=== PATIENT | female | born 1955 | race Caucasian/White ===

== ENCOUNTER 2019-12-27 17:54 | Emergency (ER) | payer BC ==
[~2019-12-27] VITALS: Ht 170.2 cm; Wt 81.6 kg
--- NOTE | 2019-12-27 18:35 | NUR ---
MSE completed by myself.
[2019-12-27] MEDS ORDERED: AMLO5TAB92 PO (18:43)
[2019-12-27] MEDS ORDERED: METF750T46 PO (18:43)
[2019-12-27 18:44] VITALS: BP_SYST 142
[2019-12-27] MEDS ORDERED: METO50TA7 PO (18:44)
[2019-12-27] MEDS ORDERED: MORPHINE SULFATE 10 MG/ML VIAL IM ONE ×2 (18:45→20:00)
[2019-12-27] MEDS ORDERED: DIPHENHYDRAMINE INJ 50 MG/ML VIAL IM ONE (18:45)
--- NOTE | 2019-12-27 18:50 | NUR ---
PATIENT TO WAITING AREA, STABLE AND UNCHANGED; ELEVATION WITH PILLOW AND ICE BAG
--- NOTE | 2019-12-27 19:45 | NUR ---
Placed in room 6. Placed on hall monitor, blood pressure machine and pulse oximeter. To gown for exam. Side rails up.
--- NOTE | 2019-12-27 19:50 | NUR ---
Pt was BIB son c/o right wrist pain and deformity s/p fall. Pt was at home and tripped and fell on right wrist. Pt is 9/10 pain unable to rotate wrist. Noted swelling to right hand, cap refill < 3 seconds. No other injuries/complaints per patient or noted.
--- NOTE | 2019-12-27 20:10 | NUR ---
GREY Ralph at bedside examining patient.
[2019-12-27] MEDS ORDERED: DIPHENHYDRAMINE INJ 50 MG/ML VIAL IVP ONE (20:30)
[2019-12-27] MEDS ORDERED: MORPHINE SULFATE 10 MG/ML VIAL IVP ONE (20:30)
[2019-12-27] MEDS ORDERED: ETOMIDATE 20 MG/ 10 ML VIAL (AMIDATE) IVP ONE (20:45)
[2019-12-27] MEDS ORDERED: NACL 0.9% 1,000 ML IV ONE (20:45)
--- NOTE | 2019-12-27 21:23 | NUR ---
Time out done at bedside. See moderate sedation record in chart.
[2019-12-27 22:30] VITALS: BP_SYST 132
--- NOTE | 2019-12-27 22:30 | NUR ---
Patient given written and verbal discharge instructions and verbalizes understanding. ER MD discussed with patient the results and treatment provided. Patient in stable condition. ID arm band removed. IV catheter removed intact and dressing applied, no active bleeding. Rx of Ibuprofen and [place] given. Patient educated on pain management and to follow up with PMD. Pain Scale 0. Opportunity for questions provided and answered. Medication side effect fact sheet provided.
== END 2019-12-27 22:30 | disposition home or self-care (01) ==
LOC: SED 17:54
DX: S52.511A Displaced fracture of right radial styloid process, initial encounter for closed fracture (principal); I10 Essential (primary) hypertension; Z86.73 Personal history of transient ischemic attack (TIA), and cerebral infarction without residual deficits; W01.0XXA Fall on same level from slipping, tripping and stumbling without subsequent striking against object, initial encounter; Y93.89 Activity, other specified; Y92.098 Other place in other non-institutional residence as the place of occurrence of the external cause; Y99.8 Other external cause status
CPT/HCPCS: 25605; 73110; 96374; 96375; 99152; 99285; J1200; J2270; J3490; J7030

== ENCOUNTER 2020-01-01 09:58 | Day surgery (SDC) | payer BC ==
[2019-12-31 12:20] LABS: BASOPHILS # (AUTO) 0.1 K/uL (0.0-0.2); BASOPHILS % (AUTO) 1.1 % (0.0-2.0); EOSINOPHILS # (AUTO) 0.2 K/uL (0.0-0.4); EOSINOPHILS % (AUTO) 2.6 % (0.0-4.0); HEMATOCRIT 35.2 % (36-48); HEMOGLOBIN 11.5 g/dL (12.0-16.0); LYMPHOCYTES # (AUTO) 1.1 K/uL (1.0-5.5); LYMPHOCYTES % (AUTO) 16.5 % (20.5-51.5); MEAN CORPUSCULAR HEMOGLOBIN 28 pg (27-31); MEAN CORPUSCULAR HGB CONC 33 % (32-36); MEAN CORPUSCULAR VOLUME 85 fL (79.0-98.0); MONOCYTES # (AUTO) 0.3 K/uL (0.0-1.0); MONOCYTES % (AUTO) 4.8 % (1.7-9.3); PLATELET COUNT (AUTO) 289 K/uL (130-430); RED BLOOD CELL COUNT(AUTO) 4.16 MIL/uL (4.2-6.2); RED CELL DISTRIBUTION WIDTH 15.1 % (9.0-15.0); WHITE BLOOD COUNT (AUTO) 6.6 K/uL (4.8-10.8)
[2019-12-31 12:34] LABS: CALCIUM 9.3 mg/dL (8.4-11.0); CREATININE 0.73 mg/dL (0.55-1.30)
[2019-12-31 12:39] LABS: INR 1.1 (0.8-1.2); PROTHROMBIN TIME 10.8 SECS (9.5-12.5)
[~2020-01-01] VITALS: Ht 170.2 cm; Wt 72.6 kg
[~2020-01-01 09:58] MED LIST: AMLO5TAB92 PO; METF750T46 PO; METO50TA7 PO
[2020-01-01] MEDS ORDERED: GLYCOPYRROLATE 0.2 MG/ML VIAL IJ ONE (12:29)
[2020-01-01] MEDS ORDERED: SEVOFLURANE 15 MIN GAS INH ONE (12:29)
[2020-01-01] MEDS ORDERED: LR 1,000 ML IV.SOLN IV ONE (12:29)
[2020-01-01] MEDS ORDERED: NS IRRIG SOLN 1000 ML IR ONE (12:29)
[2020-01-01] MEDS ORDERED: METOCLOPRAMIDE HCL 10 MG/2 ML VIAL IVP ONE (12:29)
[2020-01-01] MEDS ORDERED: PROPOFOL 200MG/ 20ML VIAL (DIPRIVAN) IV ONE (12:29)
[2020-01-01] MEDS ORDERED: LIDOCAINE 1% 10 MG/ML, 20 ML MDV IM ONE (12:29)
[2020-01-01] MEDS ORDERED: fentaNYL CITRATE/PF 100 MCG/2 ML AMP IVP ONE (12:29)
[2020-01-01] MEDS ORDERED: MIDAZOLAM HCL 5 MG/5 ML VIAL IVP ONE (12:29)
[2020-01-01] MEDS ORDERED: ONDANSETRON HCL 4 MG/2 ML VIAL IVP ONE (12:29)
[2020-01-01] MEDS ORDERED: CEFAZOLIN 2 GM IVPB PREMIX 50 ML IV ONE (12:29)
[2020-01-01] MEDS ORDERED: LR 1,000 ML IV SCH (13:02)
[2020-01-01] MEDS ORDERED: HYDROmorphone 2 MG/ML VIAL IVP PRN (13:15)
[2020-01-01] MEDS ORDERED: ONDANSETRON HCL 4 MG/2 ML VIAL IVP PRN (13:15)
[2020-01-01] MEDS ORDERED: NALOXONE HCL 0.4 MG/ML AMP (NARCAN) IVP PRN (13:15)
[2020-01-01] MEDS ORDERED: HYDROmorphone 1 MG INJ. 1 MG/ML AMPUL IVP PRN ×2 (13:15)
[2020-01-01] MEDS ORDERED: KETOROLAC TROMETHAMINE 30 MG VIAL IVP PRN ×3 (13:15)
[2020-01-01] MEDS ORDERED: HYDROmorphone 2 MG/ML VIAL ONE (13:44)
[2020-01-01 14:36] VITALS: BP_SYST 134
[2020-01-01] MEDS ORDERED: KETOROLAC TROMETHAMINE 30 MG VIAL ONE (14:40)
== END 2020-01-01 15:30 | disposition home or self-care (01) ==
LOC: SDS 09:58 → SMU 09:59 → SDS 15:30
PROVIDERS: ATTEND Orthopaedic Surgery
DX: S52.531A Colles' fracture of right radius, initial encounter for closed fracture (principal); I10 Essential (primary) hypertension; E11.9 Type 2 diabetes mellitus without complications; F17.210 Nicotine dependence, cigarettes, uncomplicated; Z90.710 Acquired absence of both cervix and uterus; Z88.8 Allergy status to other drugs, medicaments and biological substances; X58.XXXA Exposure to other specified factors, initial encounter; Y93.89 Activity, other specified; Y92.89 Other specified places as the place of occurrence of the external cause; Y99.8 Other external cause status; Z83.3 Family history of diabetes mellitus; Z79.01 Long term (current) use of anticoagulants
CPT/HCPCS: 25606; 36415; 71046; 80048; 82962; 85025; 85610; 85730; 93005; C1713; J0690; J1170; J1885; J2001; J2250; J2405; J2704; J2765; J3010; J3490; J7120; 76000

== ENCOUNTER 2024-02-16 12:07 | Emergency (ER) | payer BC, OTHER ==
[~2024-02-16] VITALS: Ht 170.2 cm; Wt 86.2 kg
[2024-02-16 12:10] VITALS: BP_SYST 132; PULSE 59; RESP 18; TEMP 98.2; O2SAT 99
[2024-02-16 12:53] LABS: BASOPHILS % (AUTO) 0.5 % (0.0-2.0); EOSINOPHILS # (AUTO) 0.2 K/uL (0.0-0.4); EOSINOPHILS % (AUTO) 2.3 % (0.0-4.0); HEMATOCRIT 30.6 % (36-48); HEMOGLOBIN 10.3 g/dL (12.0-16.0); LYMPHOCYTES # (AUTO) 1.9 K/uL (1.0-5.5); MEAN CORPUSCULAR HEMOGLOBIN 28 pg (27-31); MEAN CORPUSCULAR HGB CONC 34 % (32-36); MEAN CORPUSCULAR VOLUME 82 fL (79.0-98.0); MONOCYTES # (AUTO) 0.4 K/uL (0.0-1.0); MONOCYTES % (AUTO) 4.9 % (1.7-9.3); NEUTROPHILS # (AUTO) 5.6 K/uL (1.8-7.7); NEUTROPHILS % (AUTO) 69.3 % (40.0-70.0); PLATELET COUNT (AUTO) 178 K/uL (130-430); RED BLOOD CELL COUNT(AUTO) 3.75 MIL/uL (4.2-6.2); RED CELL DISTRIBUTION WIDTH 15.6 % (9.0-15.0); WHITE BLOOD COUNT (AUTO) 8.1 K/uL (4.8-10.8)
[2024-02-16] MEDS: ONDANSETRON 4 MG ODT TAB PO ONE (13:03)
[2024-02-16] MEDS: ACETAMINOPHEN 500 MG TABLET PO ONE (13:03)
[2024-02-16 13:09] LABS: CALCIUM 8.6 mg/dL (8.4-11.0); CREATININE 1.42 mg/dL (0.55-1.30); POTASSIUM 3.7 mmol/L (3.5-5.1)
[2024-02-16] MEDS: KETOROLAC TROMETHAMINE 30 MG VIAL IVP ONE (13:43)
[2024-02-16] MEDS: METOCLOPRAMIDE HCL 10 MG/2 ML VIAL IVP ONE (13:46)
[2024-02-16 14:16] LABS: BILIRUBIN,URINE NEGATIVE (NEGATIVE); BLOOD, URINE 1+ (NEGATIVE); CLARITY/URINE CLEAR (CLEAR); COLOR,URINE YELLOW (YELLOW); GLUCOSE,URINE NEGATIVE (NEGATIVE); KETONES,URINE NEGATIVE (NEGATIVE); LEUKOCYTE ESTERASE ,URINE NEGATIVE (NEGATIVE); NITRITE, URINE NEGATIVE (NEGATIVE); PH,URINE 6.5 (5.0-8.0); PROTEIN URINE TRACE (NEGATIVE); UROBILINOGEN,URINE 0.2 (0.2-1.0)
[2024-02-16 14:19] LABS: INFLUENZA TYPE A Negative (NEGATIVE); INFLUENZA TYPE B NEGATIVE (NEGATIVE)
[2024-02-16 14:38] LABS: BACTERIA,URINE RARE /HPF (None Seen); MUCUS,URINE None Seen /LPF (None Seen); RBC,URINE NONE SEEN /HPF (0-3); WBC,URINE 0-3 /HPF (0-3)
[2024-02-16 15:05] VITALS: BP_SYST 129; PULSE 60; RESP 18; TEMP 96.7; O2SAT 96
== END 2024-02-16 15:00 | disposition home or self-care (01) ==
LOC: SED 12:07
DX: B34.9 Viral infection, unspecified (principal); I10 Essential (primary) hypertension; E11.9 Type 2 diabetes mellitus without complications; Z88.5 Allergy status to narcotic agent
CPT/HCPCS: 99284; 96374; 71045; 96375; 80048; 81001; 85025; 36415; 87804 ×2; 81000; 81015; J1885; J2765; Q0162